=== PATIENT | female | born 1955 | race Caucasian/White ===

== ENCOUNTER → 2016-08-07 | Outpatient (CLI) | payer OTHER | LOC: FIMAGING 14:53 | DX: Z12.31 Encounter for screening mammogram for malignant neoplasm of breast (principal); N63 Unspecified lump in breast | CPT/HCPCS: G0202 ==

== ENCOUNTER → 2016-08-15 | Outpatient (CLI) | payer OTHER | LOC: FIMAGING 12:34 | PROVIDERS: ATTEND Family Medicine | DX: Z03.89 Encounter for observation for other suspected diseases and conditions ruled out (principal) | CPT/HCPCS: G0206 ==